=== PATIENT | male | born 1960 | race Two or more races ===

== ENCOUNTER 2019-03-24 08:13 | Day surgery (SDC) | payer OTHER ==
[~2019-03-24 08:13] MED LIST: ASA325 MG PO; LIPITOR80 MG PO; SYNTHROID50 MCG PO; TOPROL XL25 M1 PO; TRICOR145 MG PO; VASOTEC5 MG PO
== END 2019-03-24 14:35 | disposition home or self-care (01) ==
LOC: CIR.AMB 08:13
DX: D21.11 Benign neoplasm of connective and other soft tissue of right upper limb, including shoulder (principal)

== ENCOUNTER 2025-04-12 13:33 | Outpatient (CLI) | payer OTHER | END 2025-04-12 13:35 | disposition home or self-care (01) | LOC: TOM 13:33 | PROVIDERS: ATTEND Internal Medicine Cardiovascular Disease | DX: R07.9 Chest pain, unspecified (principal); J44.9 Chronic obstructive pulmonary disease, unspecified; I25.10 Atherosclerotic heart disease of native coronary artery without angina pectoris ==